=== PATIENT | female | born 1970 | race Caucasian/White ===

== ENCOUNTER → 2018-07-14 | Outpatient (CLI) | payer OTHER ==
--- NOTE | 2018-07-14 09:30 | REPMRS ---
Patient History The patient states she has not had a clinical breast exam in over a year. Family history of unknown cancer at age 50 or over in maternal aunt, breast cancer at age 50 or over in maternal aunt. Took hormonal contraceptives for 6 years. Digital Mammo Screening Bilat: July 14, 2018 - Exam #: [id number] Bilateral CC and MLO view(s) were taken. Technologist: Nella Navarro Technologist Prior study comparison: August 21, 2013, bilateral bilat screen digital mammo, performed at [facility] ([facility]). October 27, 2010, bilateral screening mammogram, performed at [facility]. FINDINGS: The breast tissue is extremely dense which could obscure a lesion on mammography. There is no evidence of cancer on this mammogram. No significant changes when compared with prior studies. Assessment: BI-RADS/ACR category 2 mammogram. Benign Findings. Recommendation Routine screening mammogram of both breasts in 1 year (for women over age 40). This mammogram was interpreted with the aid of an FDA-approved computer-aided dectection system. Electronically Signed By: Sam Gaines MD 07/14/18 [id number]
== END ==
LOC: M RAD 09:06
PROVIDERS: ATTEND Family Medicine
DX: Z12.31 Encounter for screening mammogram for malignant neoplasm of breast (principal); Z80.3 Family history of malignant neoplasm of breast